=== PATIENT | male | born 2000 | race Caucasian/White ===

== ENCOUNTER → 2020-07-11 | Outpatient (CLI) | payer OTHER ==
--- NOTE | 2020-07-11 13:37 | XR ---
EXAMINATION TYPE: XR hand complete RT DATE OF EXAM: 07/11/2020 CLINICAL HISTORY: Pinched right hand in machine at work. Intercarpal pain. TECHNIQUE: Frontal, lateral and oblique images of the right hand are obtained. COMPARISON: Right wrist radiograph 12/07/2015. FINDINGS: There is no acute fracture/dislocation evident in the right hand. The joint spaces in the right hand appear within normal limits. The overlying soft tissue appears unremarkable. IMPRESSION: There is no acute fracture or dislocation in the right hand.
== END | disposition home or self-care (01) ==
LOC: RADXRMAIN 12:54
PROVIDERS: ATTEND Emergency Medicine
DX: S60.221A Contusion of right hand, initial encounter (principal)

== ENCOUNTER → 2020-11-20 | Outpatient (CLI) | payer OTHER ==
--- NOTE | 2020-11-20 10:28 | XR ---
Right foot HISTORY: S 90.31 XA MR pain, trauma 3 views the right foot Bone mineralization, joint spaces and alignment are maintained. IMPRESSION: No fracture or dislocation.
== END ==
LOC: RADXRMAIN 10:01
PROVIDERS: ATTEND Emergency Medicine
DX: S90.31XA Contusion of right foot, initial encounter (principal)

== ENCOUNTER → 2020-11-28 | Outpatient (CLI) | payer OTHER ==
--- NOTE | 2020-11-28 13:14 | XR ---
Right foot HISTORY: Trauma and pain 3 views the right foot correlated prior exam 11/20/2020 There is no significant interval change. IMPRESSION: Stable exam, no acute fracture or dislocation. Consider MRI.
== END | disposition home or self-care (01) ==
LOC: RADXRMAIN 11:02
PROVIDERS: ATTEND Emergency Medicine
DX: S90.31XD Contusion of right foot, subsequent encounter (principal)

== ENCOUNTER → 2021-03-10 | Outpatient (CLI) | payer BC ==
--- NOTE | 2021-03-10 18:00 | EEG ---
ELECTROENCEPHALOGRAM REPORT DATE OF SERVICE: 03/10/2021. CLINICAL HISTORY: This is a 20-year-old gentleman with reported history of dizziness and syncope. This video EEG is obtained to evaluate for seizure epileptiform activity. RELEVANT MEDICATION: The patient is not on any antiepileptic drugs. DESCRIPTION: Wakefulness and drowsiness are obtained. During wakefulness, there is a posterior dominant rhythm of low to moderate voltage, reactive, well modulated, of 10.5 hertz activity. During drowsiness, there is slowing and attenuation of the background activity. There was no physiological things to sleep echotexture. There is no focal slowing. Interictal and ictal are none. ACTIVATION PROCEDURE: Photic stimulation: Did not evoke a posterior driving response. There is no abnormality during the photic stimulation. Hyperventilation: there is no abnormality during the hyperventilation. CLINICAL INTERPRETATION: This is a normal routine EEG. There are no focal slowing, epileptiform discharge or seizure on the EEG. Clinical correlation is recommended. RECOMMENDATIONS: If there are concerns for seizures, then recommend a prolonged EEG. MMNATASHA / ASHLEYN: [id number] / FRANKLYN
== END ==
LOC: NEUROMAIN 07:46
PROVIDERS: ATTEND Family Medicine
DX: G40.309 Generalized idiopathic epilepsy and epileptic syndromes, not intractable, without status epilepticus (principal)
CPT/HCPCS: 95816

== ENCOUNTER 2021-07-06 08:26 | Emergency (ER) | payer BC ==
[2021-07-06] MEDS ORDERED: ONDANSETRON 4 MG/2 ML VIAL IVP STA (08:47)
[2021-07-06] MEDS ORDERED: KETOROLAC 15 MG/ML 1 ML VIAL IVP STA (08:47)
[2021-07-06] MEDS ORDERED: SODIUM CHLORIDE 0.9% 500 ML 500 ML IV STA (08:47)
--- NOTE | 2021-07-06 08:47 | ED ---
Abdominal Pain HPI - General Chief Complaint: Abdominal Pain Stated Complaint: Upper left side pain Time Seen by Provider: 07/06/21 08:35 Source: patient, RN notes reviewed Mode of arrival: ambulatory Limitations: no limitations - History of Present Illness Initial Comments: Patient 21-year-old male presented to the ED for abdominal pain over the last mo nt. Patient states that pain is located in left upper quadrant with radiation to epigastric region. Patient states that he has had present nausea and vomiting for the past month, daily occurrences of vomiting. Patient states he was prescribed Zofran and omeprazole PCP there was a problem with a prescription so hasn't been able to pick them up. Patient reports he was trying to be scheduled for ultrasound by PCP but hasn't heard anything back. Patient has been taking [id number] gas relief medication with no resolution of symptoms. Patient reports decreased volume in bowel movements this last known bowel movement around 11:00am yesterday. Patient denies any fever chills headache co ugh congestion or changes in urinary patterns. - Related Data Previous Rx's Medication Instructions Recorded Omeprazole [PriLOSEC] 40 mg PO DAILY #14 cap 07/06/21 Ondansetron Odt [Zofran Odt] 4 mg PO Q8HR PRN #10 tab 07/06/21 Allergies Allergy/AdvReac Type Severity Reaction Status Date / Time No Known Allergies Allergy Verified 07/06/21 08:30 Review of Systems ROS Statement: Those systems with pertinent positive or pertinent negative responses have been documented in the HPI. ROS Other: All systems not noted in ROS Statement are negative. Past Medical History Past Medical History: Asthma History of Any Multi-Drug Resistant Organisms: None Reported Past Surgical History: No Surgical Hx Reported Past Psychological History: ADD/ADHD Smoking Status: Vaper Past Alcohol Use History: Occasional Past Drug Use History: None Reported General Exam Limitations: no limitations General appearance: alert, in no apparent distress Respiratory exam: Present: normal lung sounds bilaterally. Absent: respiratory distress, wheezes, rales, rhonchi, stridor Cardiovascular Exam: Present: regular rate, normal rhythm, normal heart sounds. Absent: systolic murmur, diastolic murmur, rubs, gallop, clicks GI/Abdominal exam: Present: soft, tenderness (Left upper quadrant), guarding, normal bowel sounds Back exam: Present: normal inspection Neurological exam: Present: alert, oriented X3 Skin exam: Present: warm, dry, intact, normal color. Absent: rash Course Vital Signs 07/06/21 08:27 Temperature 98.3 F Pulse Rate 72 Respiratory 20 Rate Blood Pressure 142/89 O2 Sat by Pulse 99 Oximetry Medical Decision Making - Medical Decision Making Labs and ultrasound show no significant abnormality. Patient will be started on omeprazole be discharged stable condition patient advised to watch what he eats he'll follow-up with PCP. - Lab Data Result diagrams: 07/06/21 09:12 07/06/21 09:12 Lab Results 07/06/21 07/06/21 07/06/21 Range/Units 09:12 09:12 10:05 WBC 5.4 (3.8-10.6) k/uL RBC 5.05 (4.30-5.90) m/uL Hgb 15.2 (13.0-17.5) gm/dL Hct 45.7 (39.0-53.0) % MCV 90.4 (80.0-100.0) fL MCH 30.0 (25.0-35.0) pg MCHC 33.2 (31.0-37.0) g/dL RDW 12.9 (11.5-15.5) % Plt Count 198 (150-450) k/uL MPV 7.7 Neutrophils % 64 % Lymphocytes % 26 % Monocytes % 5 % Eosinophils % 2 % Basophils % 0 % Neutrophils # 3.5 (1.3-7.7) k/uL Lymphocytes # 1.4 (1.0-4.8) k/uL Monocytes # 0.3 (0-1.0) k/uL Eosinophils # 0.1 (0-0.7) k/uL Basophils # 0.0 (0-0.2) k/uL Sodium 140 (137-145) mmol/L Potassium 4.7 (3.5-5.1) mmol/L Chloride 105 (98-107) mmol/L Carbon Dioxide 28 (22-30) mmol/L Anion Gap 7 mmol/L BUN 18 (9-20) mg/dL Creatinine 1.05 (0.66-1.25) mg/dL Est GFR (CKD-EPI)AfAm >90 (>60 ml/min/1.73 sqM) Est GFR (CKD-EPI)NonAf >90 (>60 ml/min/1.73 sqM) Glucose 103 H (74-99) mg/dL Calcium 10.1 (8.4-10.2) mg/dL Total Bilirubin 0.5 (0.2-1.3) mg/dL AST 24 (17-59) U/L ALT 28 (4-49) U/L Alkaline Phosphatase 70 (38-126) U/L Total Protein 7.5 (6.3-8.2) g/dL Albumin 4.5 (3.5-5.0) g/dL Amylase 71 (30-110) U/L Lipase 63 (23-300) U/L Urine Color Light Yellow Urine Appearance Clear (Clear) Urine pH 7.5 (5.0-8.0) Ur Specific [place] 1.024 (1.001-1.035) Urine Protein Negative (Negative) Urine Glucose (UA) Negative (Negative) Urine Ketones Negative (Negative) Urine Blood Negative (Negative) Urine Nitrite Negative (Negative) Urine Bilirubin Negative (Negative) Urine Urobilinogen <2.0 (<2.0) mg/dL Ur Leukocyte Esterase Negative (Negative) Disposition Clinical Impression: Abdominal pain, Gastritis Disposition: HOME SELF-CARE Condition: Stable Instructions (If sedation given, give patient instructions): Gastritis (ED), Diet for Stomach Ulcers and Gastritis (ED) Additional Instructions: Please return to the Emergency Department if symptoms worsen or any other concer ns. Prescriptions: Omeprazole [PriLOSEC] 40 mg PO DAILY #14 cap Ondansetron Odt [Zofran Odt] 4 mg PO Q8HR PRN #10 tab PRN Reason: Nausea Is patient prescribed a controlled substance at d/c from ED?: No Referrals: Matt Clark MD [Primary Care Provider] - 1-2 days Time of Disposition: 10:44
[2021-07-06 09:29] LABS: Basophils % (A) 0 %; Eosinophils # (A) 0.1 k/uL (0-0.7); Eosinophils % (A) 2 %; HCT 45.7 % (39.0-53.0); HGB 15.2 gm/dL (13.0-17.5); Lymphocytes # (A) 1.4 k/uL (1.0-4.8); Lymphocytes % (A) 26 %; MCHC 33.2 g/dL (31.0-37.0); MCV 90.4 fL (80.0-100.0); Mean Platelet Volume 7.7; Monocytes # (A) 0.3 k/uL (0-1.0); Monocytes % (A) 5 %; Neutrophils # (A) 3.5 k/uL (1.3-7.7); Neutrophils % (A) 64 %; Platelet Count 198 k/uL (150-450); RBC 5.05 m/uL (4.30-5.90); RDW 12.9 % (11.5-15.5); WBC 5.4 k/uL (3.8-10.6)
[2021-07-06 09:37] LABS: ALT 28 U/L (4-49); AST 24 U/L (17-59); African American GFR (CKD) >90 (>60 ml/min/1.73 sqM); Albumin 4.5 g/dL (3.5-5.0); Alkaline Phosphatase 70 U/L (38-126); Amylase 71 U/L (30-110); Anion Gap 7 mmol/L; Blood Urea Nitrogen 18 mg/dL (9-20); Calcium 10.1 mg/dL (8.4-10.2); Carbon Dioxide 28 mmol/L (22-30); Chloride 105 mmol/L (98-107); Glucose 103 mg/dL (74-99); Lipase 63 U/L (23-300); Non-African American GFR(CKD) >90 (>60 ml/min/1.73 sqM); Potassium 4.7 mmol/L (3.5-5.1); Sodium 140 mmol/L (137-145); Total Bilirubin 0.5 mg/dL (0.2-1.3); Total Protein 7.5 g/dL (6.3-8.2)
--- NOTE | 2021-07-06 09:43 | US ---
EXAMINATION TYPE: US gallbladder DATE OF EXAM: 07/06/2021 COMPARISON: NONE CLINICAL HISTORY: pain. Pt states pain and vomiting EXAM MEASUREMENTS: Liver Length: 14.6 cm Gallbladder Wall: 0.2 cm CBD: 0.3 cm Right Kidney: 9.7 x 4.5 x 5.1 cm Pancreas: Obscured by bowel gas Liver: wnl Gallbladder: wnl Evidence for sonographic Logan's sign: No CBD: wnl Right Kidney: wnl, lower pole gassed out No abnormality visualized to account for pt's symptoms IMPRESSION: No definite sonographic abnormality in this examination that is limited due to overlying bowel gas.
[2021-07-06 10:33] LABS: Appearance,Urine Clear (Clear); Bilirubin,Urine Negative (Negative); Blood,Urine Negative (Negative); Color,Urine Light Yellow; Glucose,Urine (UA) Negative (Negative); Ketones,Urine Negative (Negative); Leukocyte Esterase,Urine Negative (Negative); Nitrite,Urine Negative (Negative); PH, Urine 7.5 (5.0-8.0); Protein,Urine Negative (Negative); Specific Gravity,Urine 1.024 (1.001-1.035); Urobilinogen,Urine <2.0 mg/dL (<2.0)
[2021-07-06] MEDS ORDERED: PANTOPRAZOLE 40 MG/10 ML VIAL IVP STA (10:43)
[2021-07-06 11:23] VITALS: BP 125/78; PULSE 78; RESP 16; TEMP 98.5
== END 2021-07-06 11:22 | disposition home or self-care (01) ==
LOC: EC 08:26
DX: K29.70 Gastritis, unspecified, without bleeding (principal); J45.909 Unspecified asthma, uncomplicated; F17.290 Nicotine dependence, other tobacco product, uncomplicated
CPT/HCPCS: 36415; 80053; 82150; 83690; 85025; 81003; 76705; 96374; 96375 ×2; 96361; 99284; J2405; J1885; C9113

== ENCOUNTER 2022-05-05 08:39 | Emergency (ER) | payer BC, OTHER ==
[2022-05-05 08:45] VITALS: RESP 18
[2022-05-05] MEDS ORDERED: FAMOTIDINE 20 MG/2 ML VIAL IV STA (09:00)
[2022-05-05] MEDS ORDERED: ONDANSETRON 4 MG/2 ML VIAL IVP STA (09:01)
[2022-05-05] MEDS ORDERED: KETOROLAC 15 MG/ML 1 ML VIAL IVP STA (09:01)
--- NOTE | 2022-05-05 09:09 | ED ---
Abdominal Pain HPI - General Chief Complaint: Abdominal Pain Stated Complaint: abd pain Time Seen by Provider: 05/05/22 08:46 Source: patient, RN notes reviewed Mode of arrival: ambulatory Limitations: no limitations - History of Present Illness Initial Comments: 21-year-old male with a suspected past history of peptic ulcer who presents complains the onset yesterday of generalized abdominal pain sharp in nature increase with certain movements currently 7/10 severity he gets up to 9/10 before he vomits he states he had some bright red blood in flex per rectum yesterday and when he vomited today after the fourth or fifth time he started having small flecks of bright red blood in his emesis. No dizziness no fevers chills sweats no history of abdominal surgeries. MD Complaint: abdominal pain - Related Data Previous Rx's Medication Instructions Recorded Pantoprazole Sodium [Protonix] 40 mg PO DAILY #14 tab 05/05/22 Allergies Allergy/AdvReac Type Severity Reaction Status Date / Time No Known Allergies Allergy Verified 05/05/22 09:49 Review of Systems ROS Statement: Those systems with pertinent positive or pertinent negative responses have been documented in the HPI. ROS Other: All systems not noted in ROS Statement are negative. Past Medical History Past Medical History: Asthma History of Any Multi-Drug Resistant Organisms: None Reported Past Surgical History: No Surgical Hx Reported Past Psychological History: ADD/ADHD Smoking Status: Vaper Past Alcohol Use History: Occasional Past Drug Use History: None Reported General Exam - General Exam Comments Initial Comments: This is a well-developed well-nourished awake alert oriented 4 male Limitations: no limitations General appearance: alert, anxious Head exam: Present: atraumatic, normocephalic, normal inspection Eye exam: Present: normal appearance, PERRL, EOMI. Absent: scleral icterus, conjunctival injection, periorbital swelling ENT exam: Present: normal exam, mucous membranes moist Neck exam: Present: normal inspection, full ROM. Absent: tenderness, meningismus, lymphadenopathy Respiratory exam: Present: normal lung sounds bilaterally. Absent: respiratory distress, wheezes, rales, rhonchi, stridor Cardiovascular Exam: Present: regular rate, normal rhythm, normal heart sounds. Absent: systolic murmur, diastolic murmur, rubs, gallop, clicks GI/Abdominal exam: Present: soft, tenderness (Mild epigastric tenderness palpation no guarding also some lower mid abdominal pain favoring the left side), normal bowel sounds. Absent: distended, guarding, rebound, rigid, bruit, pulsatile mass Extremities exam: Present: normal inspection, full ROM, normal capillary refill. Absent: tenderness, pedal edema, joint swelling, calf tenderness Back exam: Present: normal inspection Neurological exam: Present: alert, oriented X3, CN II-XII intact Psychiatric exam: Present: normal affect, normal mood Skin exam: Present: warm, dry, intact, normal color. Absent: rash Course Vital Signs 05/05/22 08:41 Temperature 98.2 F Pulse Rate 94 Respiratory 18 Rate Blood Pressure 124/86 O2 Sat by Pulse 100 Oximetry Medical Decision Making - Medical Decision Making I did discuss findings with the patient initially much improved he would like to go home he will follow-up with his doctor outpatient he will be placed on proton pump inhibitors - Lab Data Result diagrams: 05/05/22 08:59 05/05/22 08:59 Lab Results 05/05/22 05/05/22 05/05/22 Range/Units 08:59 08:59 08:59 WBC 11.2 H (3.8-10.6) k/uL RBC 5.37 (4.30-5.90) m/uL Hgb 15.7 (13.0-17.5) gm/dL Hct 47.6 (39.0-53.0) % MCV 88.6 (80.0-100.0) fL MCH 29.3 (25.0-35.0) pg MCHC 33.1 (31.0-37.0) g/dL RDW 12.6 (11.5-15.5) % Plt Count 187 (150-450) k/uL MPV 7.6 Neutrophils % 82 % Lymphocytes % 12 % Monocytes % 4 % Eosinophils % 1 % Basophils % 0 % Neutrophils # 9.1 H (1.3-7.7) k/uL Lymphocytes # 1.3 (1.0-4.8) k/uL Monocytes # 0.5 (0-1.0) k/uL Eosinophils # 0.1 (0-0.7) k/uL Basophils # 0.0 (0-0.2) k/uL PT (9.0-12.0) sec INR (<1.2) APTT (22.0-30.0) sec Sodium 140 (137-145) mmol/L Potassium 3.7 (3.5-5.1) mmol/L Chloride 104 (98-107) mmol/L Carbon Dioxide 24 (22-30) mmol/L Anion Gap 12 mmol/L BUN 16 (9-20) mg/dL Creatinine 1.03 (0.66-1.25) mg/dL Est GFR (CKD-EPI)AfAm >90 (>60 ml/min/1.73 sqM) Est GFR (CKD-EPI)NonAf >90 (>60 ml/min/1.73 sqM) Glucose 118 H (74-99) mg/dL Plasma Lactic Acid Rex (0.7-2.0) mmol/L Calcium 9.5 (8.4-10.2) mg/dL Total Bilirubin 1.0 (0.2-1.3) mg/dL AST 26 (17-59) U/L ALT 26 (4-49) U/L Alkaline Phosphatase 72 (38-126) U/L Total Protein 7.9 (6.3-8.2) g/dL Albumin 4.9 (3.5-5.0) g/dL Amylase 56 (30-110) U/L Lipase 48 (23-300) U/L Blood Type A Negative Blood Type Confirm Blood Type Recheck No Previous Record Bld Type Recheck Status CABO Indicated Antibody Screen NEGATIVE Spec Expiration Date 05/08/2022 - 235805/05/22 05/05/22 05/05/22 Range/Units 08:59 08:59 09:37 WBC (3.8-10.6) k/uL RBC (4.30-5.90) m/uL Hgb (13.0-17.5) gm/dL Hct (39.0-53.0) % MCV (80.0-100.0) fL MCH (25.0-35.0) pg MCHC (31.0-37.0) g/dL RDW (11.5-15.5) % Plt Count (150-450) k/uL MPV Neutrophils % % Lymphocytes % % Monocytes % % Eosinophils % % Basophils % % Neutrophils # (1.3-7.7) k/uL Lymphocytes # (1.0-4.8) k/uL Monocytes # (0-1.0) k/uL Eosinophils # (0-0.7) k/uL Basophils # (0-0.2) k/uL PT 10.9 (9.0-12.0) sec INR 1.0 (<1.2) APTT 24.9 (22.0-30.0) sec Sodium (137-145) mmol/L Potassium (3.5-5.1) mmol/L Chloride (98-107) mmol/L Carbon Dioxide (22-30) mmol/L Anion Gap mmol/L BUN (9-20) mg/dL Creatinine (0.66-1.25) mg/dL Est GFR (CKD-EPI)AfAm (>60 ml/min/1.73 sqM) Est GFR (CKD-EPI)NonAf (>60 ml/min/1.73 sqM) Glucose (74-99) mg/dL Plasma Lactic Acid Rex 1.1 (0.7-2.0) mmol/L Calcium (8.4-10.2) mg/dL Total Bilirubin (0.2-1.3) mg/dL AST (17-59) U/L ALT (4-49) U/L Alkaline Phosphatase (38-126) U/L Total Protein (6.3-8.2) g/dL Albumin (3.5-5.0) g/dL Amylase (30-110) U/L Lipase (23-300) U/L Blood Type Blood Type Confirm A Negative Blood Type Recheck Bld Type Recheck Status Antibody Screen Spec Expiration Date - Radiology Data Radiology results: report reviewed (Imaging reviewed as well as report no acute findings.), image reviewed Disposition Clinical Impression: Acute gastritis Disposition: HOME SELF-CARE Condition: Good Instructions (If sedation given, give patient instructions): Gastritis (DC) Prescriptions: Pantoprazole Sodium [Protonix] 40 mg PO DAILY #14 tab Is patient prescribed a controlled substance at d/c from ED?: No Referrals: Matt Clark MD [Primary Care Provider] - 1-2 days Decision Date: 05/05/22 Decision Time: 11:58
[2022-05-05 09:20] LABS: Basophils % (A) 0 %; Eosinophils # (A) 0.1 k/uL (0-0.7); Eosinophils % (A) 1 %; HCT 47.6 % (39.0-53.0); HGB 15.7 gm/dL (13.0-17.5); Lymphocytes # (A) 1.3 k/uL (1.0-4.8); Lymphocytes % (A) 12 %; MCH 29.3 pg (25.0-35.0); MCHC 33.1 g/dL (31.0-37.0); MCV 88.6 fL (80.0-100.0); Mean Platelet Volume 7.6; Monocytes # (A) 0.5 k/uL (0-1.0); Monocytes % (A) 4 %; Neutrophils # (A) 9.1 k/uL (1.3-7.7); Neutrophils % (A) 82 %; Platelet Count 187 k/uL (150-450); RBC 5.37 m/uL (4.30-5.90); RDW 12.6 % (11.5-15.5); WBC 11.2 k/uL (3.8-10.6)
[2022-05-05 09:24] LABS: ALT 26 U/L (4-49); AST 26 U/L (17-59); African American GFR (CKD) >90 (>60 ml/min/1.73 sqM); Albumin 4.9 g/dL (3.5-5.0); Alkaline Phosphatase 72 U/L (38-126); Amylase 56 U/L (30-110); Anion Gap 12 mmol/L; Blood Urea Nitrogen 16 mg/dL (9-20); Calcium 9.5 mg/dL (8.4-10.2); Carbon Dioxide 24 mmol/L (22-30); Chloride 104 mmol/L (98-107); Glucose 118 mg/dL (74-99); Lipase 48 U/L (23-300); Non-African American GFR(CKD) >90 (>60 ml/min/1.73 sqM); Potassium 3.7 mmol/L (3.5-5.1); Sodium 140 mmol/L (137-145); Total Protein 7.9 g/dL (6.3-8.2)
[2022-05-05 09:27] LABS: Partial Thromboplastin Time 24.9 sec (22.0-30.0); Prothrombin Time 10.9 sec (9.0-12.0)
--- NOTE | 2022-05-05 10:02 | XR ---
EXAMINATION TYPE: XR KUB DATE OF EXAM: 05/05/2022 Comparison: None Clinical History: 21 year-old male abdominal pain Findings: Lung bases are clear. No evidence for free intraperitoneal air. No dilated small bowel or air-fluid levels. There is mild stool within the right side of the colon an d within the rectum. No suspicious calcifications are seen. Impression: No evidence for free air or bowel obstruction. Mild stool burden.
[2022-05-05 12:09] VITALS: BP 122/68; PULSE 68; TEMP 98.6
== END 2022-05-05 12:08 | disposition home or self-care (01) ==
LOC: EC 08:39
DX: K29.00 Acute gastritis without bleeding (principal); J45.909 Unspecified asthma, uncomplicated; F17.290 Nicotine dependence, other tobacco product, uncomplicated
CPT/HCPCS: 36415; 86900; 86901; 80053; 82150; 83605; 83690; 85025; 85610; 85730; 86850; 74018; 99284; 96374; 96375 ×2; J2405; J1885

== ENCOUNTER 2022-06-15 08:34 | Day surgery (SDC) | payer OTHER ==
[2022-06-11 12:25] VITALS: BMI 24.7
[2022-06-15 09:22] VITALS: RESP 16; TEMP 97.6
[2022-06-15] MEDS: LACTATED RINGERS 1,000 ML IV SCH ×2 (09:28→10:14)
[2022-06-15] MEDS ORDERED: PROPOFOL 10 MG/ML 20 ML VIAL IV ONE (10:18)
[2022-06-15] MEDS ORDERED: LIDOCAINE 2% INJ 20 MG/ML (2 ML VIAL) ONE (10:18)
--- NOTE | 2022-06-15 10:27 | P.PCN ---
Date of Procedure: 06/15/22 Procedure(s) Performed: BRIEF HISTORY: Patient is a 21-year-old, pleasant, white male scheduled for an upper endoscopy as a part of evaluation of GERD nausea vomiting and coffee- ground emesis he is presently on omeprazole 20 mg daily as well as Carafate 1 g 4 times daily and symptoms are significantly improved.. PROCEDURE PERFORMED: Esophagogastroduodenoscopy with biopsy. PREOPERATIVE DIAGNOSIS: Chronic epigastric pain/intermittent nausea vomiting and coffee-ground. IV sedation per anesthesia. PROCEDURE: After informed consent was obtained, the patient was brought into the endoscopy unit. IV sedation was administered by Anesthesia under continuous monitoring. Initially the Olympus GIF-140 video endoscope was inserted into the mouth. Esophagus intubated without any difficulty. It was gradually advanced into the stomach and duodenum and carefully examined. The bulb and the second part of the duodenum appeared normal biopsies were done from the duodenum to rule out celiac disease.. The scope at this time was withdrawn to the stomach, adequately insufflated with air, and upon careful examination, mucosa of the antrum, had minimal gastritis and biopsies were done from this area. No ulcerations noted. Mucosa of the body, cardia and the fundus appeared normal. The scope was then withdrawn into the esophagus. The GE junction was located at 44 cm from the incisors. The esophagus appeared normal. There were no erosions or ulcerations seen, biopsies were done from the distal and the patient tolerated the procedure well. IMPRESSION: 1. Minimal antral gastritis. 2. No evidence of esophagitis or peptic ulcer disease. RECOMMENDATIONS: The findings of this examination were discussed with the patient as well as his family. He was advised to follow with the biopsy results. He will continue with omeprazole as needed and Carafate as needed since his symptoms have resolved. He was educated about diet modification antireflux measures.
[2022-06-15 10:59] VITALS: BP 121/75; PULSE 55
== END 2022-06-15 11:35 | disposition home or self-care (01) ==
LOC: ORWHC2ENDO 08:34
PROVIDERS: ATTEND Internal Medicine Gastroenterology
DX: K29.70 Gastritis, unspecified, without bleeding (principal); Z79.1 Long term (current) use of non-steroidal anti-inflammatories (NSAID); Z79.899 Other long term (current) drug therapy
CPT/HCPCS: 88305; 43239; J2704; J2001

== ENCOUNTER → 2023-11-24 | Outpatient (CLI) | payer BC, OTHER ==
--- NOTE | 2023-11-24 12:57 | US ---
EXAMINATION TYPE: US carotid duplex BILAT DATE OF EXAM: 11/24/2023 COMPARISON: NONE CLINICAL INDICATION: Male, 23 years old with history of R55 SYNCOPE AND COLLAPSE; Pt states syncope x few years TECHNIQUE: Carotid duplex ultrasound examination. Indirect Doppler criteria was utilized. FINDINGS: EXAM MEASUREMENTS: RIGHT: Peak Systolic Velocity (PSV) cm/sec ----- Right CCA: 145 ----- Right ICA: 125 ----- Right ECA: 116 ICA/CCA ratio: 0.9 RIGHT: End Diastole cm/sec ----- Right CCA: 27.2 ----- Right ICA: 26.3 ----- Right ECA: 9.5 LEFT: Peak Systolic Velocity (PSV) cm/sec ----- Left CCA: 136 ----- Left ICA: 152 ----- Left ECA: 121 ICA/CCA ratio: 1.1 LEFT: End Diastole cm/sec ----- Left CCA: 36.2 ----- Left ICA: 33.6 ----- Left ECA: 14.7 VERTEBRALS (direction of flow): Right Vertebral: Antegrade Left Vertebral: Antegrade Rhythm: Normal ARTIFACTS CONSERVATOR NOTES: No significant stenosis seen IMPRESSION: No evidence for hemodynamically significant stenosis. Criteria for Assigning % of Stenosis / Diameter reduction (Estimation based on the indirect measurements of the internal carotid artery velocities (ICA PSV). 1. Normal (no stenosis)=ICA PSV < 125 cm/s: ratio < 2.0: ICA EDV<40 cm/s. 2. Less than 50% stenosis=ICA PSV < 125 cm/s: ratio < 2.0: ICA EDV<40 cm/s. 3. 50 to 69% stenosis=ICA PSV of 125 to 230 cm/s: ration 2.0 ? 4.0: ICA EDV 40-100 cm/s. 4. Greater than 70% stenosis to near occlusion= ICA PSV > 230 cm/s: ratio > 4.0: ICA EDV > 100 cm/s. 5. Near occlusion= ICA PSV velocities may be low or undetectable: variable ratio and ICA EDV. 6. Total occlusion=unable to detect flow.
--- NOTE | 2023-11-24 17:46 | CA ---
Transthoracic Echo Report Name: Reji Lewis Age: 23 Gender: M : 2000 Exam Date: 11/24/2023 13:00 Exam Location: [facility] Ht (in): 67 Wt (lb): 165 Ordering Physician: Suhas Arellano MD Attending/Referring Phys: Suhas Arellano MD Count Room Clerk Asia Munoz RCS Procedure CPT: Indications: R55 Syncope Cardiac Hx: Technical Quality: Excellent Contrast 1: Total Dose (mL): Contrast 2: Total Dose (mL): MEASUREMENTS (Male / Female) Normal Values 2D ECHO LV Diastolic Diameter PLAX 4.8 cm 4.2 - 5.9 / 3.9 - 5.3 cm LV Systolic Diameter PLAX 3.0 cm IVS Diastolic Thickness 1.0 cm 0.6 - 1.0 / 0.6 - 0.9 cm LVPW Diastolic Thickness 0.9 cm 0.6 - 1.0 / 0.6 - 0.9 cm LV Relative Wall Thickness 0.4 RV Internal Dim ED PLAX 2.7 cm LVOT Diameter 2.1 cm LV Diastolic Volume MOD BP 108.4 cm??? 67 - 155 / 56 - 104 cm??? LV Systolic Volume MOD BP 40.8 cm??? 22 - 58 / 19 - 49 cm??? LV Ejection Fraction MOD BP 62.3 % >= 55 % LV Cardiac Index MOD BP 1998.7 cm???/min???m??? LV Diastolic Volume MOD 4C 107.3 cm??? LV Systolic Volume MOD 4C 47.9 cm??? LV Ejection Fraction MOD 4C 55.3 % LV Cardiac Index MOD 4C 1755.4 cm???/min???m??? LV Diastolic Length 4C 8.9 cm LV Systolic Length 4C 7.8 cm LV Diastolic Volume MOD 2C 102.1 cm??? LV Systolic Volume MOD 2C 33.5 cm??? LV Ejection Fraction MOD 2C 67.2 % LV Cardiac Index MOD 2C 2028.3 cm???/min???m??? LV Diastolic Length 2C 9.5 cm LV Systolic Length 2C 8.1 cm LA Volume 30.6 cm??? 18 - 58 / 22 - 52 cm??? LA Volume Index 16.2 cm???/m??? 16 - 28 cm???/m??? DOPPLER AV Peak Velocity 132.9 cm/s AV Peak Gradient 7.1 mmHg AV Mean Velocity 96.7 cm/s AV Mean Gradient 4.1 mmHg AV Velocity Time Integral 26.5 cm LVOT Peak Velocity 112.1 cm/s LVOT Peak Gradient 5.0 mmHg LVOT Velocity Time Integral 20.1 cm LVOT Stroke Volume 70.1 cm??? LVOT Stroke Volume Index 37.6 ml/m??? LVOT Cardiac Index 2072.9 cm???/min???m??? AV Area Cont Eq vti 2.6 cm??? AV Area Cont Eq pk 2.9 cm??? MV Area PHT 4.7 cm??? Mitral E Point Velocity 76.7 cm/s Mitral A Point Velocity 40.0 cm/s Mitral E to A Ratio 1.9 MV Deceleration Time 163.1 ms TR Peak Velocity 198.0 cm/s TR Peak Gradient 15.7 mmHg PV Peak Velocity 98.3 cm/s PV Peak Gradient 3.9 mmHg FINDINGS Left Ventricle Left ventricular ejection fraction is estimated at 55-60 %. Left ventricular wall thickness normal. Left ventricular cavity size normal. No obvious regional wall motion abnormalities. Right Ventricle Normal right ventricular size and function. Right ventricular systolic pressure within normal limits. Right Atrium Normal right atrial size. Left Atrium Normal left atrial size. Mitral Valve Structurally normal mitral valve. No mitral stenosis, regurgitation or prolapse. Aortic Valve Trileaflet aortic valve. No aortic valve stenosis or regurgitation. Tricuspid Valve Structurally normal tricuspid valve. No tricuspid stenosis. Trace tricuspid regurgitation. Pulmonic Valve Structurally normal pulmonic valve. No pulmonic stenosis. Trace pulmonic regurgitation. Pericardium No pericardial effusion. Aorta Normal size aortic root and proximal ascending aorta. CONCLUSIONS Normal LV function Trace tricuspid regurgitation Previewed by: Dr. Serg De La Rosa MD (Electronically Signed) Final Date: 24 November 2023 17:46
== END | disposition home or self-care (01) ==
LOC: RADUSWWP 12:24
PROVIDERS: ATTEND Internal Medicine
DX: R55 Syncope and collapse (principal)
CPT/HCPCS: 93306; 93880